=== PATIENT | female | born 2000 | race Caucasian/White ===

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

== ENCOUNTER 2022-02-23 18:48 | Emergency (ER) | payer OTHER ==
[2022-02-23 19:06] VITALS: BP 115/75; PULSE 96; RESP 18; TEMP 98; BMI 23.9
[2022-02-23] MEDS ORDERED: ACETAMINOPHEN 325 MG TABLET (FP) PO ONE (21:13)
[2022-02-23] MEDS ORDERED: MAG HYDROX/AL HYDROX/SIMETH 30 ML UNIT-DOSE CUP PO ONE (21:14)
[2022-02-23] MEDS ORDERED: ONDANSETRON *ODT* 4 MG TABLET SL ONE (21:14)
[2022-02-23] MEDS ORDERED: FAMOTIDINE 10 MG TABLET PO ONE (21:14)
[2022-02-23] MEDS ORDERED: ONDANSETRON *ODT* 4 MG TABLET ONE (21:48)
[2022-02-23] MEDS ORDERED: FAMOTIDINE 10 MG TABLET ONE (21:48)
[2022-02-23] MEDS ORDERED: ACETAMINOPHEN 325 MG TABLET (FP) ONE (21:48)
[2022-02-23] MEDS ORDERED: MAG HYDROX/AL HYDROX/SIMETH 30 ML UNIT-DOSE CUP ONE (21:48)
[2022-02-23 22:44] LABS: BASO % 0.5 % (0-2.0); EOS % 1.2 % (0-4.5); HEMATOCRIT 39.4 % (32.4-45.2); HEMOGLOBIN 12.9 GM/dL (10.7-15.3); LYMPH % 15.7 % (8-40); MCH 28.2 pg (25.7-33.7); MCHC 32.6 g/dl (32.0-36.0); MEAN CELL VOLUME 86.4 fl (80-96); MEAN PLT VOLUME 7.8 fl (7.5-11.1); NEUT % 71.6 % (42.8-82.8); PLATELET COUNT 303 10^3/uL (134-434); RBC 4.56 M/mm3 (3.60-5.2); RDW 13.5 % (11.6-15.6); WHITE BLOOD COUNT 5.8 K/mm3 (4.0-10.0)
[2022-02-23 23:01] LABS: ALBUMIN 4.1 g/dl (3.4-5.0); BLOOD UREA NITROGEN 12.9 mg/dL (7-18); CALCIUM 9.8 mg/dL (8.5-10.1)
[2022-02-23 23:05] LABS: CREATININE 0.6 mg/dL (0.55-1.3); TOT PROT 8.1 g/dl (6.4-8.2)
[2022-02-23 23:07] LABS: BILIRUBIN,TOTAL 0.3 mg/dL (0.2-1)
[2022-02-23] MEDS ORDERED: KETOROLAC TROMETHAMINE 30 MG/1 ML VIAL IM ONE (23:31)
[2022-02-23] MEDS ORDERED: KETOROLAC TROMETHAMINE 30 MG/1 ML VIAL ONE (23:37)
[2022-02-23 23:45] LABS: PH,URINE 6.5 (5.0-8.0); URINE APPEARANCE CLEAR; URINE BILIRUBIN NEGATIVE (NEGATIVE); URINE COLOR YELLOW; URINE GLUCOSE (UA) NEGATIVE (NEGATIVE); URINE KETONE NEGATIVE (NEGATIVE); URINE LEUK ESTERASE NEGATIVE (NEGATIVE); URINE NITRITE NEGATIVE (NEGATIVE); URINE PROTEIN NEGATIVE (NEGATIVE); URINE UROBILINOGEN 0.2 mg/dL (0.2-1.0)
[2022-02-24] MEDS ORDERED: SUCRALFATE 1 GM TABLET (FP) PO ONE (01:04)
[2022-02-24] MEDS ORDERED: SUCRALFATE 1 GM TABLET (FP) ONE (01:07)
== END 2022-02-24 02:13 | disposition home or self-care (01) ==
LOC: JER 18:48
PROC: 3E0233Z Introduction of Anti-inflammatory into Muscle, Percutaneous Approach (ICD-10-PCS; principal; 2022-02-23)
DX: R10.11 Right upper quadrant pain (principal)
CPT/HCPCS: 36415; 76705-TC; 80053; 81003; 83690; 84703; 85025; 87086; 99284-25; Q0162

== ENCOUNTER 2022-03-16 00:52 | Emergency (ER) | payer OTHER ==
[2022-03-16 00:59] VITALS: BP 119/74; PULSE 98; RESP 20; TEMP 98.5; BMI 22.1
[2022-03-16] MEDS ORDERED: predniSONE 20 MG TABLET (UD) PO ONE (01:25)
[2022-03-16] MEDS: ALBUTEROL SO4 2.5/IPRATROPIUM 0.5 INH SOL 3 ML VIAL.NEB. NEB SCH ×2 (01:30→01:45)
[2022-03-16] MEDS ORDERED: predniSONE 20 MG TABLET (UD) ONE (01:35)
== END 2022-03-16 04:28 | disposition home or self-care (01) ==
LOC: JER 00:52
PROC: 3E0F7GC Introduction of Other Therapeutic Substance into Respiratory Tract, Via Natural or Artificial Opening (ICD-10-PCS; principal; 2022-03-16)
DX: J45.30 Mild persistent asthma, uncomplicated (principal)
CPT/HCPCS: 0241U-QW; 71046-TC-FY; 99284-25

== ENCOUNTER 2022-03-20 15:17 | Emergency (ER) | payer OTHER ==
[2022-03-20 15:49] VITALS: BP 107/64; PULSE 103; RESP 18; TEMP 98; BMI 23.8
[2022-03-20] MEDS ORDERED: ALBUTEROL SO4 2.5/IPRATROPIUM 0.5 INH SOL 3 ML VIAL.NEB. NEB ONE ×2 (16:56→17:45)
== END 2022-03-20 18:46 | disposition home or self-care (01) ==
LOC: JER 15:17
PROC: 3E0F7GC Introduction of Other Therapeutic Substance into Respiratory Tract, Via Natural or Artificial Opening (ICD-10-PCS; principal; 2022-03-20)
DX: J45.909 Unspecified asthma, uncomplicated (principal)
CPT/HCPCS: 99283-25

== ENCOUNTER 2022-04-02 15:39 | Emergency (ER) | payer OTHER ==
[2022-04-02 16:14] VITALS: BP 125/82; PULSE 103; RESP 18; TEMP 98.1; BMI 26.5
[2022-04-02] MEDS ORDERED: SODIUM CHLORIDE 1,000 ML IV STA (16:36)
[2022-04-02] MEDS ORDERED: ACETAMINOPHEN 1000 MG/100 ML BAG IVPB ONE (16:36)
[2022-04-02] MEDS ORDERED: ACETAMINOPHEN INJECTION 100 ML IVPB ONE (16:51)
[2022-04-02 17:33] LABS: EPI CELLS 13 /uL (0-25.1); HCG,QUALITATIVE URINE Negative; HYALINE CASTS 1 /uL (0-3.1); URINE APPEARANCE CLEAR; URINE BACTERIA 149 /uL (0-1359); URINE BILIRUBIN NEGATIVE (NEGATIVE); URINE COLOR YELLOW; URINE GLUCOSE (UA) NEGATIVE (NEGATIVE); URINE KETONE TRACE (NEGATIVE); URINE LEUK ESTERASE 1+ (NEGATIVE); URINE NITRITE NEGATIVE (NEGATIVE); URINE PROTEIN NEGATIVE (NEGATIVE); URINE RBC 43 /uL (0-23.9); URINE UROBILINOGEN 0.2 mg/dL (0.2-1.0); URINE WBC 33 /uL (0-25.8)
[2022-04-02 17:35] LABS: BASO % 0.6 % (0-2.0); EOS % 17.6 % (0-4.5); HEMATOCRIT 40.5 % (32.4-45.2); HEMOGLOBIN 13.6 GM/dL (10.7-15.3); LYMPH % 20.6 % (8-40); MCH 28.8 pg (25.7-33.7); MCHC 33.6 g/dl (32.0-36.0); MEAN CELL VOLUME 85.9 fl (80-96); MEAN PLT VOLUME 8.4 fl (7.5-11.1); MONO % 5.7 % (3.8-10.2); NEUT % 55.5 % (42.8-82.8); PLATELET COUNT 369 10^3/uL (134-434); RBC 4.72 M/mm3 (3.60-5.2); RDW 13.8 % (11.6-15.6); WHITE BLOOD COUNT 10.5 K/mm3 (4.0-10.0)
[2022-04-02 17:49] LABS: CALCIUM 9.7 mg/dL (8.5-10.1)
[2022-04-02 17:50] LABS: BLOOD UREA NITROGEN 12.2 mg/dL (7-18)
[2022-04-02 17:52] LABS: CREATININE 0.8 mg/dL (0.55-1.3)
[2022-04-02 17:54] LABS: BILIRUBIN,TOTAL 0.2 mg/dL (0.2-1); TOT PROT 7.8 g/dl (6.4-8.2)
== END 2022-04-02 19:40 | disposition home or self-care (01) ==
LOC: JERFT 15:39
PROC: 3E0333Z Introduction of Anti-inflammatory into Peripheral Vein, Percutaneous Approach (ICD-10-PCS; principal; 2022-04-02)
PROC: 3E0337Z Introduction of Electrolytic and Water Balance Substance into Peripheral Vein, Percutaneous Approach (ICD-10-PCS; 2022-04-02)
DX: N30.00 Acute cystitis without hematuria (principal)
CPT/HCPCS: 36415; 76705-TC; 80053; 81003; 83690; 84703; 85025; 87086; 99284-25

== ENCOUNTER 2022-05-17 09:50 | Emergency (ER) | payer OTHER ==
[2022-05-17 10:15] VITALS: TEMP 98.1; BMI 23.9
[2022-05-17 11:53] LABS: BASO % 0.9 % (0-2.0); EOS % 12.4 % (0-4.5); HEMATOCRIT 40.1 % (32.4-45.2); HEMOGLOBIN 12.9 GM/dL (10.7-15.3); MCH 27.4 pg (25.7-33.7); MCHC 32.2 g/dl (32.0-36.0); MEAN PLT VOLUME 8.3 fl (7.5-11.1); MONO % 6.8 % (3.8-10.2); NEUT % 52.9 % (42.8-82.8); PLATELET COUNT 277 10^3/uL (134-434); RBC 4.72 M/mm3 (3.60-5.2); RDW 13.7 % (11.6-15.6); WHITE BLOOD COUNT 5.7 K/mm3 (4.0-10.0)
[2022-05-17 11:57] LABS: EPI CELLS 6 /uL (0-25.1); HCG,QUALITATIVE URINE Negative; HYALINE CASTS 0 /uL (0-3.1); URINE APPEARANCE CLEAR; URINE BACTERIA 6 /uL (0-1359); URINE BILIRUBIN NEGATIVE (NEGATIVE); URINE COLOR YELLOW; URINE GLUCOSE (UA) NEGATIVE (NEGATIVE); URINE KETONE NEGATIVE (NEGATIVE); URINE LEUK ESTERASE TRACE (NEGATIVE); URINE NITRITE NEGATIVE (NEGATIVE); URINE PROTEIN NEGATIVE (NEGATIVE); URINE RBC 10 /uL (0-23.9); URINE UROBILINOGEN 0.2 mg/dL (0.2-1.0); URINE WBC 10 /uL (0-25.8)
[2022-05-17 12:12] LABS: ALBUMIN 3.9 g/dl (3.4-5.0); BLOOD UREA NITROGEN 9.6 mg/dL (7-18); CALCIUM 9.7 mg/dL (8.5-10.1)
[2022-05-17 12:15] LABS: CREATININE 0.7 mg/dL (0.55-1.3); TOT PROT 7.7 g/dl (6.4-8.2)
[2022-05-17 12:17] LABS: BILIRUBIN,TOTAL 0.3 mg/dL (0.2-1)
[2022-05-17] MEDS ORDERED: levETIRAcetam 500 MG/5 ML INJECTION VIAL IVPB ONE ×2 (12:48→13:12)
[2022-05-17] MEDS ORDERED: DIVALPROEX SODIUM 250 MG TABLET E.C. PO ONE (12:48)
[2022-05-17] MEDS ORDERED: DIVALPROEX SODIUM 125 MG TABLET E.C. ONE (13:13)
[2022-05-17 13:45] VITALS: BP 113/76; PULSE 94; RESP 15
== END 2022-05-17 13:51 | disposition home or self-care (01) ==
LOC: JER 09:50
PROC: 3E033GC Introduction of Other Therapeutic Substance into Peripheral Vein, Percutaneous Approach (ICD-10-PCS; principal; 2022-05-17)
DX: R56.9 Unspecified convulsions (principal)
CPT/HCPCS: 36415; 80053; 80164; 81003; 84703; 85025; 87086; 93005; 93010; 99284-25

== ENCOUNTER 2022-05-30 00:03 | Emergency (ER) | payer OTHER ==
[2022-05-30 00:12] VITALS: BP 106/76; PULSE 108; RESP 18; TEMP 98; BMI 23.8
[2022-05-30 02:17] LABS: HCG,QUALITATIVE URINE Negative
[2022-05-30 02:18] LABS: EPI CELLS 11 /uL (0-25.1); HYALINE CASTS 1 /uL (0-3.1); URINE APPEARANCE CLEAR; URINE BACTERIA 51 /uL (0-1359); URINE BILIRUBIN NEGATIVE (NEGATIVE); URINE COLOR YELLOW; URINE GLUCOSE (UA) NEGATIVE (NEGATIVE); URINE KETONE TRACE (NEGATIVE); URINE LEUK ESTERASE 1+ (NEGATIVE); URINE NITRITE NEGATIVE (NEGATIVE); URINE PROTEIN NEGATIVE (NEGATIVE); URINE RBC 17 /uL (0-23.9); URINE WBC 52 /uL (0-25.8)
[2022-05-30 02:26] LABS: BASO % 0.9 % (0-2.0); EOS % 14.3 % (0-4.5); HEMATOCRIT 41.6 % (32.4-45.2); HEMOGLOBIN 13.6 GM/dL (10.7-15.3); LYMPH % 26.4 % (8-40); MCH 27.8 pg (25.7-33.7); MCHC 32.8 g/dl (32.0-36.0); MEAN CELL VOLUME 84.8 fl (80-96); MEAN PLT VOLUME 8.4 fl (7.5-11.1); MONO % 4.7 % (3.8-10.2); NEUT % 53.7 % (42.8-82.8); PLATELET COUNT 342 10^3/uL (134-434); RDW 13.5 % (11.6-15.6); WHITE BLOOD COUNT 11.6 K/mm3 (4.0-10.0)
[2022-05-30] MEDS ORDERED: SODIUM CHLORIDE 0.9% 500 ML INFUS.BAG IV ONE (02:35)
[2022-05-30 02:48] LABS: ALBUMIN 4.3 g/dl (3.4-5.0); BLOOD UREA NITROGEN 11.9 mg/dL (7-18); CALCIUM 9.9 mg/dL (8.5-10.1)
[2022-05-30 02:51] LABS: CREATININE 0.8 mg/dL (0.55-1.3)
[2022-05-30 02:53] LABS: BILIRUBIN,TOTAL 0.2 mg/dL (0.2-1); TOT PROT 8.1 g/dl (6.4-8.2)
[2022-05-30] MEDS ORDERED: ALBUTEROL SO4 HFA INHALER IH ONE ×2 (03:27→03:29)
== END 2022-05-30 05:19 | disposition home or self-care (01) ==
LOC: JER 00:03
PROC: 3E0F7GC Introduction of Other Therapeutic Substance into Respiratory Tract, Via Natural or Artificial Opening (ICD-10-PCS; principal; 2022-05-30)
DX: R10.9 Unspecified abdominal pain (principal)
CPT/HCPCS: 36415; 74177-TC; 76700-TC; 80053; 81003; 83690; 84703; 85025; 87086; 99285-25

== ENCOUNTER 2022-08-23 12:30 | Emergency (ER) | payer OTHER ==
[2022-08-23 12:38] VITALS: BP 122/80; PULSE 92; RESP 18; TEMP 97.8; BMI 26.5
[2022-08-23] MEDS ORDERED: IBUPROFEN 600 MG TABLET (FP) PO ONE ×2 (13:42→13:51)
[2022-08-23] MEDS ORDERED: CLINDAMYCIN HCL 300 MG CAPSULE PO ONE (13:44)
[2022-08-23] MEDS ORDERED: CLINDAMYCIN PALMITATE HCL ORAL SOLUTION 75 MG/5 ML BOTTLE PO ONE (13:51)
[2022-08-23] MEDS ORDERED: CLINDAMYCIN HCL 150 MG CAPSULE (FP) ONE (13:51)
== END 2022-08-23 14:09 | disposition home or self-care (01) ==
LOC: JERFT 12:30 → JER 12:30 → JERFT 14:09
DX: L03.116 Cellulitis of left lower limb (principal)
CPT/HCPCS: 73630-TC-LT; 87070; 87077; 87186; 87205; 99284-25

== ENCOUNTER 2022-09-29 00:31 | Emergency (ER) | payer OTHER ==
[2022-09-29 00:48] VITALS: BP 123/72; RESP 18; TEMP 98.3; BMI 25.0
[2022-09-29] MEDS ORDERED: IBUPROFEN 600 MG TABLET (FP) PO ONE ×2 (01:15→01:29)
[2022-09-29 02:21] VITALS: PULSE 95
== END 2022-09-29 04:29 | disposition home or self-care (01) ==
LOC: JER 00:31
PROC: 2W3GX1Z Immobilization of Right Thumb using Splint (ICD-10-PCS; principal; 2022-09-29)
DX: S69.91XA Unspecified injury of right wrist, hand and finger(s), initial encounter (principal); M79.641 Pain in right hand; M25.531 Pain in right wrist; W23.1XXA Caught, crushed, jammed, or pinched between stationary objects, initial encounter; Y99.0 Civilian activity done for income or pay
CPT/HCPCS: 73110-TC-RT-FY; 73130-TC-RT-FY; 73140-TC-RT-FY; 99283-25

== ENCOUNTER 2022-10-01 13:01 | Emergency (ER) | payer OTHER ==
[2022-10-01 13:14] VITALS: BP 129/85; PULSE 90; RESP 16; TEMP 97.9; BMI 17.6
[2022-10-01] MEDS ORDERED: IBUPROFEN 600 MG TABLET (FP) PO ONE ×2 (14:52→15:32)
== END 2022-10-01 17:20 | disposition home or self-care (01) ==
LOC: JERFT 13:01
DX: S09.90XA Unspecified injury of head, initial encounter (principal); R51.9 Headache, unspecified; M54.2 Cervicalgia; Y04.2XXA Assault by strike against or bumped into by another person, initial encounter; Y92.511 Restaurant or cafe as the place of occurrence of the external cause
CPT/HCPCS: 70450-TC; 99284-25

== ENCOUNTER 2022-10-10 21:56 | Emergency (ER) | payer OTHER ==
[2022-10-10 22:05] VITALS: BP 114/76; PULSE 83; RESP 18; TEMP 98.1; BMI 26.5
[2022-10-10] MEDS ORDERED: SODIUM CHLORIDE 0.9% 500 ML INFUS.BAG IV ONE (22:36)
[2022-10-10] MEDS ORDERED: METOCLOPRAMIDE HCL INJECTION 10 MG/2 ML VIAL IVPB ONE (22:36)
[2022-10-10] MEDS ORDERED: ACETAMINOPHEN 1000 MG/100 ML BAG IVPB ONE (22:36)
[2022-10-10] MEDS ORDERED: METOCLOPRAMIDE HCL INJECTION 10 MG/2 ML VIAL ONE (23:15)
[2022-10-10] MEDS ORDERED: ACETAMINOPHEN INJECTION 100 ML IVPB ONE (23:16)
[2022-10-10 23:26] LABS: BASO % 0.5 % (0-2.0); EOS % 7.5 % (0-4.5); HEMATOCRIT 38.6 % (32.4-45.2); HEMOGLOBIN 12.7 GM/dL (10.7-15.3); LYMPH % 19.8 % (8-40); MCH 28.1 pg (25.7-33.7); MCHC 32.8 g/dl (32.0-36.0); MEAN CELL VOLUME 85.5 fl (80-96); MEAN PLT VOLUME 8.7 fl (7.5-11.1); MONO % 5.4 % (3.8-10.2); NEUT % 66.8 % (42.8-82.8); PLATELET COUNT 304 10^3/uL (134-434); RBC 4.52 M/mm3 (3.60-5.2); RDW 14.1 % (11.6-15.6); WHITE BLOOD COUNT 11.7 K/mm3 (4.0-10.0)
[2022-10-10] MEDS ORDERED: ALBUTEROL SO4 0.083% IH SOL 2.5 MG/3 ML VIAL.NEB. NEB SCH (23:30)
[2022-10-10 23:43] LABS: POTASSIUM 4.2 mmol/L (3.5-5.1)
[2022-10-10 23:45] LABS: CALCIUM 9.9 mg/dL (8.5-10.1)
[2022-10-10 23:46] LABS: ALBUMIN 3.9 g/dl (3.4-5.0); BLOOD UREA NITROGEN 13.7 mg/dL (7-18); MAGNESIUM 1.9 mg/dL (1.8-2.4)
[2022-10-10 23:49] LABS: CREATININE 0.7 mg/dL (0.55-1.3)
[2022-10-10 23:51] LABS: BILIRUBIN,TOTAL 0.3 mg/dL (0.2-1); TOT PROT 7.7 g/dl (6.4-8.2)
== END 2022-10-11 00:52 | disposition home or self-care (01) ==
LOC: JER 21:56
PROC: 3E033NZ Introduction of Analgesics, Hypnotics, Sedatives into Peripheral Vein, Percutaneous Approach (ICD-10-PCS; principal; 2022-10-10)
PROC: 3E033GC Introduction of Other Therapeutic Substance into Peripheral Vein, Percutaneous Approach (ICD-10-PCS; 2022-10-10)
PROC: 3E0F7GC Introduction of Other Therapeutic Substance into Respiratory Tract, Via Natural or Artificial Opening (ICD-10-PCS; 2022-10-10)
DX: R42 Dizziness and giddiness (principal); R51.9 Headache, unspecified
CPT/HCPCS: 0241U-QW; 36415; 70450-TC; 80053; 83735; 84703; 85025; 99284-25

== ENCOUNTER 2023-03-04 13:48 | Emergency (ER) | payer OTHER ==
[2023-03-04 15:03] VITALS: BMI 26.5
[2023-03-04 16:10] LABS: BASO % 0.8 % (0-2.0); HEMATOCRIT 41.4 % (32.4-45.2); HEMOGLOBIN 13.7 GM/dL (10.7-15.3); LYMPH % 22.5 % (8-40); MCH 28.6 pg (25.7-33.7); MCHC 33.1 g/dl (32.0-36.0); MEAN CELL VOLUME 86.5 fl (80-96); MONO % 4.2 % (3.8-10.2); NEUT % 61.5 % (42.8-82.8); PLATELET COUNT 306 10^3/uL (134-434); RBC 4.79 M/mm3 (3.60-5.2); RDW 13.1 % (11.6-15.6)
[2023-03-04 16:22] LABS: POTASSIUM 4.4 mmol/L (3.5-5.1)
[2023-03-04 16:24] LABS: ALBUMIN 3.5 g/dl (3.4-5.0); CALCIUM 8.9 mg/dL (8.5-10.1)
[2023-03-04 16:25] LABS: BLOOD UREA NITROGEN 13.6 mg/dL (7-18); MAGNESIUM 1.7 mg/dL (1.8-2.4)
[2023-03-04 16:28] LABS: CREATININE 0.7 mg/dL (0.55-1.3)
[2023-03-04 16:29] LABS: BILIRUBIN,TOTAL 0.2 mg/dL (0.2-1); TOT PROT 7.6 g/dl (6.4-8.2)
[2023-03-04 18:34] VITALS: BP 112/79; PULSE 84; RESP 16; TEMP 98.5
== END 2023-03-04 18:36 | disposition home or self-care (01) ==
LOC: JER 13:48
DX: G40.909 Epilepsy, unspecified, not intractable, without status epilepticus (principal)
CPT/HCPCS: 36415; 80053; 80164; 80177; 83605; 83735; 84439; 84443; 84703; 85025; 93005; 93010; 99284-25

== ENCOUNTER 2023-03-26 12:10 | Emergency (ER) | payer OTHER ==
[2023-03-26 12:15] VITALS: BP 138/86; PULSE 103; RESP 18; TEMP 98.1; BMI 26.5
[2023-03-26] MEDS ORDERED: DEXAMETHASONE SOD PHOSPHATE 4 MG/1 ML VIAL IVPUSH ONE (12:44)
[2023-03-26] MEDS ORDERED: ALBUTEROL SO4 2.5/IPRATROPIUM 0.5 INH SOL 3 ML VIAL.NEB. NEB ONE ×2 (12:45→12:46)
[2023-03-26] MEDS ORDERED: DEXAMETHASONE SOD PHOSPHATE 10 MG/1 ML VIAL ONE (12:46)
== END 2023-03-26 14:16 | disposition home or self-care (01) ==
LOC: JERFT 12:10
PROC: 3E033NZ Introduction of Analgesics, Hypnotics, Sedatives into Peripheral Vein, Percutaneous Approach (ICD-10-PCS; principal; 2023-03-26)
PROC: 3E0F7GC Introduction of Other Therapeutic Substance into Respiratory Tract, Via Natural or Artificial Opening (ICD-10-PCS; 2023-03-26)
DX: J45.20 Mild intermittent asthma, uncomplicated (principal)
CPT/HCPCS: 94640; 96374; 99284-25

== ENCOUNTER 2023-12-16 12:17 | Emergency (ER) | payer OTHER ==
[2023-12-16 12:32] VITALS: RESP 18; BMI 25.7
[2023-12-16 15:30] LABS: URINE APPEARANCE CLEAR; URINE BILIRUBIN NEGATIVE (NEGATIVE); URINE COLOR YELLOW; URINE GLUCOSE (UA) NEGATIVE (NEGATIVE); URINE KETONE TRACE (NEGATIVE); URINE LEUK ESTERASE NEGATIVE (NEGATIVE); URINE NITRITE NEGATIVE (NEGATIVE); URINE PROTEIN NEGATIVE (NEGATIVE)
[2023-12-16 15:33] LABS: HCG,QUALITATIVE URINE Negative
[2023-12-16] MEDS ORDERED: FAMOTIDINE 20 MG TABLET ONE (16:06)
[2023-12-16] MEDS ORDERED: MAG HYDROX/AL HYDROX/SIMETH 30 ML UNIT-DOSE CUP ONE (16:06)
[2023-12-16] MEDS: MAG HYDROX/AL HYDROX/SIMETH 30 ML UNIT-DOSE CUP PO ONE (16:09)
[2023-12-16] MEDS: FAMOTIDINE 20 MG TABLET PO ONE (16:09)
[2023-12-16 18:06] VITALS: BP 119/83; PULSE 75; TEMP 98.4
== END 2023-12-16 18:28 | disposition home or self-care (01) ==
LOC: JER 12:17
DX: R10.12 Left upper quadrant pain (principal); R10.32 Left lower quadrant pain; R11.2 Nausea with vomiting, unspecified
CPT/HCPCS: 74018-TC-FY; 76775-TC; 76830-TC; 81003; 84703; 87086; 99285-25

== ENCOUNTER 2024-02-25 10:40 | Emergency (ER) | payer OTHER ==
[2024-02-25] MEDS ORDERED: ALBUTEROL SO4 2.5/IPRATROPIUM 0.5 INH SOL 3 ML VIAL.NEB. NEB ONE (11:22)
[2024-02-25] MEDS ORDERED: DEXAMETHASONE SOD PHOSPHATE 10 MG/1 ML VIAL ONE (11:22)
[2024-02-25] MEDS: DEXAMETHASONE 4 MG TABLET (FP) PO ONE (11:34)
[2024-02-25] MEDS: ALBUTEROL SO4 2.5/IPRATROPIUM 0.5 INH SOL 3 ML VIAL.NEB. NEB SCH (11:34)
[2024-02-25 11:53] VITALS: BP 120/74; PULSE 110; RESP 20; TEMP 97.7; BMI 27.4
== END 2024-02-25 13:49 | disposition home or self-care (01) ==
LOC: JER 10:40
PROC: 3E0F7GC Introduction of Other Therapeutic Substance into Respiratory Tract, Via Natural or Artificial Opening (ICD-10-PCS; principal; 2024-02-25)
DX: J45.901 Unspecified asthma with (acute) exacerbation (principal); R09.81 Nasal congestion; Z20.822 Contact with and (suspected) exposure to COVID-19
CPT/HCPCS: 0241U-QW; 93005; 93010; 94640; 99284-25

== ENCOUNTER 2024-03-08 09:11 | Emergency (ER) | payer OTHER ==
[2024-03-08 09:18] VITALS: BP 117/92; PULSE 94; RESP 20; TEMP 98.8; BMI 27.4
[2024-03-08 10:46] LABS: BASO % 0.8 % (0-2.0); EOS % 14.2 % (0-4.5); HEMATOCRIT 37.2 % (32.4-45.2); HEMOGLOBIN 12.6 GM/dL (10.7-15.3); LYMPH % 17.8 % (8-40); MCH 29.7 pg (25.7-33.7); MCHC 33.9 g/dl (32.0-36.0); MEAN CELL VOLUME 87.5 fl (80-96); MEAN PLT VOLUME 8.6 fl (7.5-11.1); MONO % 6.5 % (3.8-10.2); NEUT % 60.7 % (42.8-82.8); PLATELET COUNT 248 10^3/uL (134-434); RBC 4.25 M/mm3 (3.60-5.2); RDW 13.5 % (11.6-15.6); WHITE BLOOD COUNT 9.8 K/mm3 (4.0-10.0)
[2024-03-08 10:53] LABS: INR 0.87 (0.83-1.09); PROTHROMBIN TIME (PATIENT) 9.9 SEC (9.7-13.0)
[2024-03-08 10:56] LABS: ACTIVATED PTT 27.7 SECONDS (25.2-36.5)
[2024-03-08 11:05] LABS: CALCIUM 9.7 mg/dL (8.5-10.1)
[2024-03-08 11:06] LABS: ALBUMIN 3.6 g/dl (3.4-5.0); BLOOD UREA NITROGEN 15.2 mg/dL (7-18); MAGNESIUM 2.1 mg/dL (1.8-2.4)
[2024-03-08 11:09] LABS: CREATININE 0.9 mg/dL (0.55-1.3)
[2024-03-08 11:10] LABS: BILIRUBIN,TOTAL 0.2 mg/dL (0.2-1)
[2024-03-08 12:19] LABS: HCG,QUALITATIVE URINE Negative
[2024-03-08 12:20] LABS: PH,URINE 6.5 (5.0-8.0); URINE APPEARANCE CLEAR; URINE BILIRUBIN NEGATIVE (NEGATIVE); URINE COLOR YELLOW; URINE GLUCOSE (UA) NEGATIVE (NEGATIVE); URINE KETONE TRACE (NEGATIVE); URINE LEUK ESTERASE NEGATIVE (NEGATIVE); URINE NITRITE NEGATIVE (NEGATIVE); URINE PROTEIN NEGATIVE (NEGATIVE)
== END 2024-03-08 12:45 | disposition home or self-care (01) ==
LOC: JER 09:11
DX: G40.909 Epilepsy, unspecified, not intractable, without status epilepticus (principal); Z20.822 Contact with and (suspected) exposure to COVID-19
CPT/HCPCS: 0241U-QW; 36415; 71045-TC-FY; 80053; 80164; 80177; 81003; 83735; 84703; 85025; 85610; 85730; 93005; 93010; 99285-25

== ENCOUNTER 2024-03-16 04:45 | Emergency (ER) | payer OTHER ==
[2024-03-16] MEDS ORDERED: ALBUTEROL SO4 2.5/IPRATROPIUM 0.5 INH SOL 3 ML VIAL.NEB. NEB ONE ×4 (04:49→06:08)
[2024-03-16 04:51] VITALS: BP 127/95; PULSE 112; RESP 25; TEMP 97.8; BMI 27.4
[2024-03-16] MEDS ORDERED: methylPREDNISolone NA SUCC 125 MG/2 ML VIAL ONE (04:52)
[2024-03-16] MEDS ORDERED: MAGNESIUM 1GM/D5W - 1 GM/100 ML IVPB IVPB ONE (04:53)
[2024-03-16] MEDS: methylPREDNISolone NA SUCC 125 MG/2 ML VIAL IVPUSH ONE (04:59)
[2024-03-16] MEDS: ALBUTEROL SO4 2.5/IPRATROPIUM 0.5 INH SOL 3 ML VIAL.NEB. NEB SCH ×2 (04:59→06:00)
[2024-03-16] MEDS: MAGNESIUM SULF 50% (8.12 MEQ/2 ML-1 GM VIAL) IVPB ONE ×2 (05:10)
== END 2024-03-16 07:00 | disposition home or self-care (01) ==
LOC: JER 04:45
PROC: 3E033GC Introduction of Other Therapeutic Substance into Peripheral Vein, Percutaneous Approach (ICD-10-PCS; principal; 2024-03-16)
PROC: 3E0F7GC Introduction of Other Therapeutic Substance into Respiratory Tract, Via Natural or Artificial Opening (ICD-10-PCS; 2024-03-16)
DX: J45.901 Unspecified asthma with (acute) exacerbation (principal); R06.02 Shortness of breath; R00.0 Tachycardia, unspecified; R07.89 Other chest pain
CPT/HCPCS: 99284-25

== ENCOUNTER 2025-01-15 16:57 | Emergency (ER) | payer OTHER ==
[2025-01-15 17:09] VITALS: BP 111/72; PULSE 95; RESP 18; TEMP 97.7; BMI 24.0
[2025-01-15 18:13] LABS: ABSOLUTE IMMATURE GRANULOCYTES 0.06 x10^3/uL (0.0-0.031); BASOPHILS # 0.03 x10^3/uL (0.01-0.08); EOSINOPHIL % 1.2 % (0.7-5.8); EOSINOPHILS # 0.10 x10^3/uL (0.04-0.36); MCHC 33.0 g/dl (32.2-35.5); MEAN CELL VOLUME 89.2 fl (79.4-94.8); MEAN PLT VOLUME 9.8 fl (9.4-12.3); MONOCYTE # 0.47 x10^3/uL (0.24-0.86); MONOCYTE % 5.9 % (4.7-12.5); RDW 11.9 % (12.1-16.5)
[2025-01-15 18:19] LABS: EPI CELLS >36 /uL (0-25.1); HYALINE CASTS 12 /uL (0-3.1); URINE APPEARANCE TURBID; URINE BACTERIA 158 /uL (0-1359); URINE BILIRUBIN 1+ (NEGATIVE); URINE COLOR DK YELLOW; URINE GLUCOSE (UA) NEGATIVE (NEGATIVE); URINE KETONE TRACE (NEGATIVE); URINE LEUK ESTERASE TRACE (NEGATIVE); URINE NITRITE NEGATIVE (NEGATIVE); URINE PROTEIN 1+ (NEGATIVE); URINE RBC 24 /uL (0-23.9); URINE UROBILINOGEN 1.0 mg/dL (0.2-1.0); URINE WBC 59 /uL (0-25.8)
[2025-01-15] MEDS: SODIUM CHLORIDE 0.9% 500 ML INFUS.BAG IV ONE (18:19)
[2025-01-15 19:06] LABS: GLUCOSE,RANDOM 84.0 mg/dL (74-106); TOT PROT 7.4 g/dl (6.4-8.2)
[2025-01-15 19:07] LABS: CO2 21.0 mmol/L (21-32)
[2025-01-15 19:34] LABS: HCV DIAGNOSTIC IN-HOUSE W/RFLX NON-REACTIVE (NONREACTIVE); HIV INTERPRETATION NEGATIVE (NEGATIVE)
[2025-01-15 20:19] LABS: URINE CRYSTALS NONE SEEN /hpf
[2025-01-15 21:45] LABS: ALK PHOS 49.0 U/L (40-150)
[2025-01-15 21:48] LABS: CREATININE 0.6 mg/dL (0.55-1.3); SGOT/AST 15.0 U/L (5-34); SGPT/ALT 10.0 U/L (0-55)
== END 2025-01-15 21:09 | disposition home or self-care (01) ==
LOC: JER 16:57
DX: R55 Syncope and collapse (principal); E86.0 Dehydration; R42 Dizziness and giddiness; R61 Generalized hyperhidrosis; R09.81 Nasal congestion; R51.9 Headache, unspecified; R05.9 Cough, unspecified
CPT/HCPCS: 36415; 80053; 81003; 85025; 86803; 87086; 87389; 87637-QW; 93005; 93010; 99284-25